=== PATIENT | female | born 1935 | race Caucasian/White ===

== ENCOUNTER 2018-01-13 10:23 | Inpatient (IN) | payer OTHER ==
[~2018-01-13] VITALS: Ht 162.6 cm; Wt 56.7 kg
[~2018-01-13 10:23] MED LIST: CORDARONE; LORTAB 7.5/5001 TA3
[2018-01-13 10:25] VITALS: BP 208/88
[2018-01-13] MEDS ORDERED: SYNTHROID50 MCG PO (10:33)
[2018-01-13 12:51] LABS: ABSOLUTE BASOPHILS 0.1 thou/uL (0.0-0.2); ABSOLUTE LYMPHOCYTES 0.8 thou/uL (0.8-5.3); ABSOLUTE MONOCYTES 0.5 thou/uL (0.0-1.2); ABSOLUTE NEUTROPHILS 4.1 thou/uL (1.6-8.1); BASOPHILS 1.2 %; EOSINOPHILS 0.2 %; HEMATOCRIT 43.7 % (37.0-47.0); HEMOGLOBIN 14.5 gm/dL (12.0-15.0); LYMPHOCYTES 15.1 %; MCH 29.1 pg (26.0-34.0); MCHC 33.2 g/dL (28.0-37.0); MCV 87.7 fL (80.0-100.0); MONOCYTES 8.3 %; MPV 7.4 fl. (7.2-11.1); NUCLEATED RBCS 0 /100WBC; PLATELET COUNT* 275 thou/uL (150-400); POLYS 75.2 %; RBC 4.98 mil/uL (4.20-5.00); RDW-CV 15.3 % (10.5-14.5); WBC 5.5 thou/uL (4.0-11.0)
[2018-01-13 13:05] LABS: ANION GAP 7 mmol/L (7-16); BUN 15 mg/dL (7-18); CALCIUM 9.6 mg/dL (8.5-10.1); CHLORIDE 103 mmol/L (98-107); CO2 29 mmol/L (21-32); CREATININE 1.1 mg/dL (0.6-1.3); GLUCOSE 101 mg/dL (70-99); POTASSIUM 4.1 mmol/L (3.5-5.1); SODIUM 139 mmol/L (136-145)
[2018-01-13 13:09] LABS: ALBUMIN 3.7 g/dL (3.4-5.0); ALKALINE PHOSPHATASE 65 U/L (46-116); SGOT 18 U/L (15-37); SGPT 18 U/L (30-65); TOTAL BILIRUBIN 0.6 mg/dL (<0.1-1.0); TOTAL PROTEIN 7.1 g/dL (6.4-8.2); TROPONIN-I LEVEL <0.06 ng/mL (<0.06)
[2018-01-13 14:00] VITALS: BP 132/69
[2018-01-13 15:30] VITALS: BP 158/80
--- NOTE | 2018-01-13 16:05 | EKG ---
[place] [address] ELECTROCARDIOGRAM REPORT Name: LUISA HEDRICK Room: [address] ADM IN M.R.#: [id number] Admission: 01/13/18 Attend Phys: Marjorie Coffman MD Discharge: Date of : 33 Report #: [id number] THIS REPORT FOR: //name// [facility] ED Test Date: 2018-01-13 Test Time: 12:48:53 Pat Name: LUISA HEDRICK Department: Room: [facility] Gender: F [employer] Warehouse Supervisor: Yaw SAUER : 1935 Requested By: Gaby Montano Order Number: [id number] MD: Andrae Sen Measurements Intervals [place] Rate: 65 P: 55 MA: 169 QRS: 7 QRSD: 94 T: 39 QT: 399 QTc: 415 Interpretive Statements Sinus rhythm Possible left atrial enlargement Compared to ECG 09/27/2011 08:44:51 No significant changes Electronically Signed On 01-13-2018 16:05:08 LOGISTICS PLANNING MANAGER by Andrae Sen [email or web address] <ELECTRONICALLY SIGNED> By: Andrae Sen MD, [facility] 01/13/18 1605 1248 1248 Andrae Sen MD, FACC /EPI
[2018-01-13 20:00] VITALS: BP 143/63
[2018-01-14 00:23] VITALS: BP 151/54
[2018-01-14 04:16] VITALS: BP 148/58
[2018-01-14 05:10] LABS: HEMATOCRIT 39.6 % (37.0-47.0); MCH 28.6 pg (26.0-34.0); MCHC 32.9 g/dL (28.0-37.0); MPV 7.4 fl. (7.2-11.1); RBC 4.55 mil/uL (4.20-5.00); RDW-CV 15.4 % (10.5-14.5); WBC 3.7 thou/uL (4.0-11.0)
[2018-01-14 06:06] LABS: POTASSIUM 4.1 mmol/L (3.5-5.1); TOTAL BILIRUBIN 0.5 mg/dL (<0.1-1.0); TOTAL PROTEIN 5.4 g/dL (6.4-8.2)
[2018-01-14 07:07] LABS: URINE BILIRUBIN NEGATIVE (Negative); URINE BLOOD NEGATIVE (Negative); URINE CLARITY CLEAR; URINE COLOR YELLOW; URINE GLUCOSE-RANDOM NEGATIVE (Negative); URINE KETONES NEGATIVE (Negative); URINE LEUKOCYTES-REFLEX NEGATIVE (Negative); URINE NITRITE-REFLEX NEGATIVE (Negative); URINE PROTEIN NEGATIVE (Negative); URINE UROBILINOGEN 0.2 E.U./dl (0.2-1.0)
[2018-01-14 08:15] VITALS: BP 208/83
[2018-01-14 10:05] VITALS: BP 150/72
[2018-01-14 12:00] VITALS: BP 132/51; BP 168/73
[2018-01-14] MEDS ORDERED: TAMIFLU30 MG PO (16:22)
[2018-01-14 16:25] VITALS: BP 150/72
== END 2018-01-14 16:48 | disposition home or self-care (01) | DRG 194 ==
LOC: M.ERS 10:23 → M.TBA-ER 13:27 → M.2W 13:27
PROVIDERS: Personal Emergency Response Attendant; ADMIT Internal Medicine
DX: J09.X2 Influenza due to identified novel influenza A virus with other respiratory manifestations (principal); E44.0 Moderate protein-calorie malnutrition; I10 Essential (primary) hypertension; M19.90 Unspecified osteoarthritis, unspecified site; S09.90XA Unspecified injury of head, initial encounter; R26.81 Unsteadiness on feet; E03.9 Hypothyroidism, unspecified; Z79.899 Other long term (current) drug therapy; Z88.2 Allergy status to sulfonamides; Z88.5 Allergy status to narcotic agent; Z90.11 Acquired absence of right breast and nipple; Z91.041 Radiographic dye allergy status

== ENCOUNTER → 2018-05-19 | Outpatient (CLI) | payer OTHER ==
[~2018-05-19] MED LIST changes: +ASPIR 8181 MG PO; +COREG6.25 MG PO; +HYDROCHLOROTH12.5 M1 PO; +LIPITOR40 MG PO; +LISINOPRIL10 MG PO; +MOTION SICKNESS25 M4 PO; +ONDANSETRON ODT4 MG PO; +SYNTHROID50 MCG PO; +TAMIFLU30 MG PO
== END ==
LOC: M.LAB 10:00 → M.CT 11:00
DX: G93.9 Disorder of brain, unspecified (principal); R90.82 White matter disease, unspecified

== ENCOUNTER 2018-08-06 17:42 | Inpatient (IN) | payer OTHER ==
[~2018-08-06] VITALS: Ht 162.6 cm; Wt 57.2 kg
[~2018-08-06 17:42] MED LIST changes: -ASPIR 8181 MG PO; -COREG6.25 MG PO; -HYDROCHLOROTH12.5 M1 PO; -LIPITOR40 MG PO; -LISINOPRIL10 MG PO; -MOTION SICKNESS25 M4 PO; -ONDANSETRON ODT4 MG PO
[2018-08-06 17:47] VITALS: BP 225/96
[2018-08-06] MEDS ORDERED: ONDANSETRON ODT4 MG PO (17:49)
[2018-08-06] MEDS ORDERED: MOTION SICKNESS25 M4 PO (17:49)
[2018-08-06 18:23] LABS: HEMATOCRIT 42.8 % (37.0-47.0); HEMOGLOBIN 14.1 gm/dL (12.0-15.0); MCH 28.8 pg (26.0-34.0); MCV 87.3 fL (80.0-100.0); MPV 7.3 fl. (7.2-11.1); RBC 4.9 mil/uL (4.20-5.00); RDW-CV 15.4 % (10.5-14.5)
[2018-08-06 18:29] LABS: ANION GAP 6 mmol/L (7-16); BUN 15 mg/dL (7-18); CALCIUM 8.8 mg/dL (8.5-10.1); CHLORIDE 101 mmol/L (98-107); CO2 28 mmol/L (21-32); CREATININE 1.2 mg/dL (0.6-1.3); GLUCOSE 103 mg/dL (70-99); POTASSIUM 3.8 mmol/L (3.5-5.1); SODIUM 135 mmol/L (136-145)
[2018-08-06 18:34] LABS: APTT 25.7 Seconds (25.0-31.3)
[2018-08-06 18:36] LABS: ALBUMIN 3.5 g/dL (3.4-5.0); ALKALINE PHOSPHATASE 61 U/L (46-116); SGOT 17 U/L (15-37); SGPT 19 U/L (30-65); TOTAL BILIRUBIN 0.3 mg/dL (<0.1-1.0); TOTAL PROTEIN 6.8 g/dL (6.4-8.2); TROPONIN-I LEVEL <0.06 ng/mL (<0.06)
[2018-08-06 19:15] LABS: URINE BILIRUBIN NEGATIVE (Negative); URINE BLOOD NEGATIVE (Negative); URINE CLARITY CLEAR; URINE COLOR YELLOW; URINE GLUCOSE-RANDOM NEGATIVE (Negative); URINE KETONES NEGATIVE (Negative); URINE LEUKOCYTES 1+ (Negative); URINE NITRITE NEGATIVE (Negative); URINE PROTEIN NEGATIVE (Negative); URINE SPECIFIC GRAVITY <= 1.005 (1.005-1.030); URINE UROBILINOGEN 0.2 E.U./dl (0.2-1.0)
[2018-08-06 19:22] LABS: BACTERIA None Seen /HPF (None Seen); CASTS None Seen /LPF (None Seen); CRYSTALS None Seen /LPF (None Seen); SQUAMOUS 0-3 Few /LPF (0-3); URINE RBC None Seen /HPF (0-2); URINE WBC 0-5 Rare /HPF (0-5)
[2018-08-06 20:43] VITALS: BP 196/71
[2018-08-06 21:00] VITALS: BP 227/95
[2018-08-06 21:55] VITALS: BP 191/81
[2018-08-06 22:30] VITALS: BP 179/80
[2018-08-07] VITALS (8 sets, daily range): BP systolic 123–191; BP diastolic 50–92
[2018-08-07 05:22] LABS: HEMATOCRIT 40.7 % (37.0-47.0); HEMOGLOBIN 13.6 gm/dL (12.0-15.0); MCH 29.4 pg (26.0-34.0); MCHC 33.4 g/dL (28.0-37.0); MPV 7.4 fl. (7.2-11.1); RBC 4.63 mil/uL (4.20-5.00); RDW-CV 15.1 % (10.5-14.5); WBC 4.6 thou/uL (4.0-11.0)
[2018-08-07 05:25] LABS: CHOLESTEROL 218 mg/dL (<200); HDL CHOLESTEROL 79 mg/dL (>40); LDL CHOLESTEROL 131 mg/dL (<100); TC:HDL 2.8 Ratio (Not establshd); TRIGLYCERIDE 44 mg/dL (<150); VLDL 9 mg/dL (<40)
[2018-08-07 05:26] LABS: SERUM ASSESSMENT Clear
[2018-08-07 05:30] LABS: CREATININE 1.2 mg/dL (0.6-1.3); MAGNESIUM 2.2 mg/dL (1.8-2.4); POTASSIUM 4.1 mmol/L (3.5-5.1)
[2018-08-07] MEDS ORDERED: HYDROCHLOROTH12.5 M1 PO (09:50)
[2018-08-07] MEDS ORDERED: LISINOPRIL10 MG PO (09:50)
[2018-08-07] MEDS ORDERED: ASPIR 8181 MG PO (09:50)
[2018-08-07] MEDS ORDERED: LIPITOR40 MG PO (09:50)
--- NOTE | 2018-08-07 10:55 | EKG ---
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 08/07/18 1055 1750 1750 Keshav Tariq MD, [facility] /EPI
--- NOTE | 2018-08-07 11:31 | 2DMMODE ---
[place] [address] 2 D/M-MODE ECHOCARDIOGRAM Name: LUISA HEDRICK Room: [address] IN [facility]#: [id number] Admission: 08/06/18 Attend Phys: Lenny Lara, Discharge: Date of : 33 Date of Service: 08/07/18 1131 Report #: [id number] THIS REPORT FOR: //name// APPROVED REPORT Study performed: 08/07/2018 10:48:31 EXAM: Comprehensive 2D, Doppler, and color-flow Echocardiogram Patient Location: In-Patient Room #: [facility] Status: routine BSA: 1.62 HR: 68 bpm BP: 144/64 mmHg Rhythm: NSR Other Information Study Quality: Excellent Indications CVA/TIA Echo Enhancing Agent Indication: Rule out Shunt Agent(s) / Amount(s) Used: Agitated Saline 10 cc 2D Dimensions IVSd: 12.81 (7-11mm) LVOT Diam: 19.92 (18-24mm) LVDd: 39.74 mm PWd: 10.28 (7-11mm) Ascending Ao: 29.09 (22-36mm) LVDs: 22.44 (25-40mm) Aortic Root: 29.07 mm Volumes Left Atrial Volume (Systole) LA ESV Index: 26.50 mL/m2 Aortic Valve AoV Peak Arsalan.: 1.49 m/s AO Peak Gr.: 8.82 mmHg LVOT Max P.42 mmHg AO Mean Gr.: 4.73 mmHg LVOT Mean P.00 mmHg LVOT Max V: 1.05 m/s AO V2 VTI: 31.02 cm LVOT Mean V: 0.64 m/s LEIDA (VTI): 2.36 cm2 LVOT V1 VTI: 23.47 [place] [address] 2 D/M-MODE ECHOCARDIOGRAM Name: JOHN HEDRICKNA Room: [address] IN ..#: [id number] Admission: 08/06/18 Attend Phys: Lenny Lara, Discharge: Date of : 33 Date of Service: 08/07/18 1131 Report #: [id number] Mitral Valve E/A Ratio: 0.58 MV Decel. Time: 335.65 ms MV E Max Arsalan.: 0.56 m/s MV PHT: 97.34 ms MVA (PHT): 2.26 cm2 TDI E/Lateral E': 7.00 E/Medial E': 8.00 Medial E' Arsalan.: 0.07 m/s Lateral E' Arsalan.: 0.08 m/s Pulmonary Valve PV Peak Arsalan.: 0.92 m/s PV Peak Gr.: 3.36 mmHg Tricuspid Valve RAP Estimate: 5.00 mmHg TR Peak Gr.: 18.51 mmHg RVSP: 23.50 mmHg PA Pressure: 23.50 mmHg Left Ventricle The left ventricle is normal size. There is normal LV segmental wall motion. There is normal left ventricular wall thickness. Left ventricular systolic function is normal. The left ventricular ejection fraction is within the normal range. LVEF is 60-65%. The left ventricular diastolic function is normal. Right Ventricle The right ventricle is normal size. The right ventricular systolic function is normal. Atria The left atrium size is normal. The right atrium size is normal. Aortic Valve Mild aortic valve sclerosis. No aortic regurgitation is present. There is no aortic valvular stenosis. Mitral Valve The mitral valve is normal in structure. There is no mitral valve regurgitation noted. No evidence of mitral valve stenosis. Tricuspid Valve The tricuspid valve is normal in structure. Trace tricuspid regurgitation. [place] [address] 2 D/M-MODE ECHOCARDIOGRAM Name: LUISA HEDRICK Room: [address] IN [facility]#: [id number] Admission: 08/06/18 Attend Phys: Lenny Lara, Discharge: Date of : 33 Date of Service: 08/07/18 1131 Report #: [id number] Pulmonic Valve The pulmonary valve is normal in structure. There is no pulmonic valvular regurgitation. Great Vessels The aortic root is normal in size. IVC is normal in size and collapses with >50% inspiration Pericardium There is no pericardial effusion. <Conclusion> Left ventricular systolic function is normal. The left ventricular ejection fraction is within the normal range. <ELECTRONICALLY SIGNED> By: Keshav Tariq MD, FACC 08/07/18 1131 1131 113 Keshav Tariq MD, FACC /INF
[2018-08-07 14:10] LABS: GLYCOHEMOGLOBIN (HGB A1C) 5.2 % (4.8-5.6)
[2018-08-08] VITALS: BP 137/56
[2018-08-08 04:00] VITALS: BP 166/73
[2018-08-08 08:00] VITALS: BP 166/76
[2018-08-08 12:00] VITALS: BP 181/72
[2018-08-08 16:00] VITALS: BP 190/75
[2018-08-08 19:30] VITALS: BP 177/66
[2018-08-09] VITALS: BP 158/66
[2018-08-09 04:00] VITALS: BP 125/65
[2018-08-09 08:00] VITALS: BP 182/72
[2018-08-09 12:00] VITALS: BP 188/54
[2018-08-09 16:00] VITALS: BP 189/82
[2018-08-09 19:50] VITALS: BP 184/80
[2018-08-10] VITALS: BP 126/52
[2018-08-10 04:00] VITALS: BP 131/69
[2018-08-10] MEDS ORDERED: COREG6.25 MG PO (09:49)
[2018-08-10 10:24] VITALS: BP 161/68
[2018-08-10 11:37] VITALS: BP 154/69
--- NOTE | 2018-08-14 09:32 | CON ---
[address] [address] CONSULTATION Name: LUISA HEDRICK Room: [address] IN M.R.#: [id number] Admission: 08/06/18 Attend Phys: Lenny Lara MD Discharge: 08/10/18 Date of : 33 Report #: [id number] THIS REPORT FOR: //name// CC: Lenny Lambert Mirelladominik DATE OF SERVICE: 08/07/2018 HISTORY OF PRESENT ILLNESS: This is an 83-year-old female patient for whom a Neurology consultation was done tonight. The history originally I got from the nurse is that they noticed numbness in the left arm around 7:45. That history is not clear by talking to the patient as I will explain later. As I understood from them, subsequently the patient tried to walk and they noticed weakness because she was not able to walk. As per protocol, code stroke was activated and since it was after hours as per protocol, emergency room physician was called. Dr. Trujillo saw the patient as a stroke protocol and evaluated the patient. He did a noncontrast CT of the head and it was unremarkable. He evaluated the patient for TPA. The patient was outside the window for 3 hours and as I understood from him, she did not qualify for 4-1/2 hour window because she was more than 80-year-old and as per protocol, she was excluded from the 4-1/2 hour window. As I understood from him, he ordered a CT stroke protocol. He also recommended they contact me and the floor contacted me around 11:30 and around that time is the one I talked to Dr. Trujillo. History is basically as summarized above. When I asked the patient about the timing, she is not sure. She actually says the numbness may have happened even before 7 o'clock. She did not realize she was weak till she tried to walk, so there may be some neglect there and the symptom may be going on much longer than previously thought and the time cannot be determined with accuracy. She is weak, but still able to move the left side. She is numb. I talked to the nurses, her blood pressure was about 120 systolic, just prior to when they took it and during the episode, the blood pressure was still relatively low and the systolic was in 140s. When the patient came in, her blood pressure was 225/96. The last time the patient took her blood pressure was on Friday and she said it was very high. She did not take any medical action and just took one aspirin. Prior to that, she has not taken her blood pressure for a long time. So it looked like this patient is most likely a longstanding hypertensive where her blood pressure is uncontrolled and high for long time and it would be desirable to assume that further management. It is a difficult situation in this patient. 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 As mentioned above, I had discussed the patient with Dr. Trujillo and the patient was [address] [address] CONSULTATION Name: LUISA HEDRICK Room: [address] IN [facility].#: [id number] Admission: 08/06/18 Attend Phys: Lenny Lara MD Discharge: 08/10/18 Date of : 33 Report #: [id number] not within 3-hour window for TPA and she was not given TPA. He had ordered further workup to see if any emboli is there. Her GFR is 43. It looks like this patient had a stroke. The stroke appeared to be most likely secondary to intracranial disease and her inability to tolerate the lower blood pressure because most likely intracranial circulation is accustomed to high blood pressure she has. We may have to lower the blood pressure slowly over a period of time. Cardio embolization because of atrial fibrillation is possible, but the symptom does not appear to be hyperacute. I discussed both aggressive and nonaggressive management with this patient. I discussed the pros and cons of that. After discussing all the options with her, I agree that she is not a TPA candidate, but we should evaluate her for stroke and because of that, I went ahead and ordered an MRI stat in this patient. We can do a CT angio with contrast with a GFR of 43, but MRI will be safer. I personally do not think she is going to be a candidate for anything. I did give her all the options including the options of TPA and the fact that she can become worse. She understood that. She also want to avoid TPA and she is not in the time frame of TPA. I am not sure if she is in time frame for anything else or anything else we will find which will change the treatment, but we will make an attempt. I did give her a bolus of fluid to bump up her blood pressure. I asked the nurses to keep her flat. They should not raise her head till the blood pressure is definitely more than 150, but even then try to keep her flat. Further management will depend upon the MRI results. It will be desirable to keep her blood pressure high for next several days. More than 35 minutes of time was spent taking care of this patient today and majority of that time was spent counseling the patient on multiple options and coordinating her care. <ELECTRONICALLY SIGNED> By: Rafa Ponce MD 08/14/18 0932 0138 [id number] winifred Waddell
--- NOTE | 2018-08-14 09:32 | CON ---
[address] [address] CONSULTATION Name: LUISA HEDRICK Room: [address] IN M.R.#: [id number] Admission: 08/06/18 Attend Phys: Lenny Lara MD Discharge: 08/10/18 Date of : 33 Report #: [id number] THIS REPORT FOR: //name// CC: Lenny Latif DATE OF SERVICE: 08/07/2018 HISTORY OF PRESENT ILLNESS: This is an 83-year-old female patient who was evaluated by me for any neurological etiology for the patient's dizziness. History is somewhat poorly defined but looks like this patient is having this dizziness since December but then, she said she is going to ENT on a regular basis. That is for her throat cancer according to her, but they have evaluated her for what she described as vertigo. She get these spells that last several days and she got a similar spell and it is lasting several days. She does not know anything, which makes it better or worse. It came spontaneously without any trauma. REVIEW OF SYSTEMS: A 14-point review of system was carried out in this patient. She said she has some throat cancer. Her blood pressure fluctuates and it goes high. Sometime, she has ataxia and dizziness. When she came in, her blood pressure was pretty high. She has a history of breast cancer and some ENT cancer. She had right knee surgery in the past. She has a history of arthritis. She denies any other 14-point review of systems positive history. She is not having any visual, cardiac, respiratory, GI, , musculoskeletal, constitutional, dermatological, hematological, psychiatric, throat, allergic symptom associated with present symptomatology. PAST MEDICAL HISTORY: Negative for any early age stroke. FAMILY HISTORY: Negative for early age stroke. SOCIAL HISTORY: She does not smoke. PHYSICAL EXAMINATION: NEUROLOGICAL: Indicate she is alert, responsive. Her speech, concentration, fund of knowledge and memory is at her baseline. Cranial nerve examination 2 through 12 is unremarkable. Strength, sensation, reflexes and tone is symmetrical. There is no meningeal sign. There is no carotid bruit. There is no cerebellar sign. GENERAL: She is moderately built individual who does not have any dysmorphic features of eyes, ears and face. VITAL SIGNS: Blood pressure is 167/69, respirations 17, pulse is 63 and temperature is 97.9. NECK: She has no thyroid mass. There is no carotid bruit. HEENT: Her vision [place] [address] CONSULTATION Name: LUISA HEDRICK Room: [address] IN [facility]#: [id number] Admission: 08/06/18 Attend Phys: Lenny Lara MD Discharge: 08/10/18 Date of : 34 Report #: [id number] LUNGS: No respiratory difficulty or rhonchi was noticed. CARDIOVASCULAR: No cardiac abnormality was noted. VITAL SIGNS: As described above. Blood pressure was pretty high when she came in. LABORATORY DATA: Indicate a white count of 4.6. Sodium is normal. RADIOLOGICAL DATA: MRI of the brain and MRA of the head and neck showed some atherosclerotic disease but nothing which can explain the patient's symptom. IMPRESSION: It is unlikely that there is any neurological etiology for the patient's symptoms. The patient's symptoms are most likely because of systemic etiologies including other including ENT. 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 She is on aspirin and statin and she needs aggressive therapy for that. RECOMMENDATIONS: As far as dizziness is concerned, I will suggest doing some systemic workup and management. I do not believe the symptoms are neurological in origin. I do not believe any further neurological workup is indicated. Now, she does have problem with atherosclerotic disease intracranially and that need to be aggressively managed. Thank you very much for this referral. I discussed this and all other options including angiogram, workup for vasculitis and she understands that and she would like to continue management as an outpatient, especially with ENT. <ELECTRONICALLY SIGNED> By: Rafa Ponce MD 08/14/18 0932 1536 [id number] Ponce MD /nt
--- NOTE | 2018-08-17 12:28 | CON ---
[address] [address] CONSULTATION Name: LUISA HEDRICK Room: [address] IN M.R.#: [id number] Admission: 08/06/18 Attend Phys: Lenny Lara MD Discharge: 08/10/18 Date of : 34 Report #: [id number] THIS REPORT FOR: //name// CC: Lenny Latif INDICATION: Stroke. HISTORY OF PRESENT ILLNESS: The patient is a very pleasant 83-year-old white female with no prior cardiac history. She was admitted to the hospital several days ago with vertigo symptoms. She also had some left-sided numbness and tingling. She still has some slight symptoms on her left side. The dizziness has improved significantly. She is now ambulatory. She denies any chest pain or shortness of breath. She denies any history of atrial fibrillation. An echocardiogram showed normal left ventricular systolic function, normal diastolic function, mild aortic valvular sclerosis without stenosis and no other significant abnormalities. Cerebrovascular imaging suggests a stroke involving the right pontomedullary junction suggesting a small right brain stem acute/subacute ischemic infarct. No other significant abnormalities were noted. She denies any palpitations. PAST MEDICAL HISTORY: 1. Hypertension. 2. Breast cancer, status post right mastectomy. 3. Arthritis. 4. Appendectomy. 5. Oral cancer. 6. Right knee surgery for a bone chip. FAMILY HISTORY: Noncontributory. SOCIAL HISTORY: The patient is a lifelong nonsmoker, drinks alcohol rarely. CURRENT MEDICATIONS: Lipitor 40 mg p.o. at bedtime, lisinopril 10 mg p.o. every day, enteric-coated aspirin 325 mg daily, hydrochlorothiazide 12.5 mg daily, Zofran p.r.n., levothyroxine 0.05 mg daily. ALLERGIES: CONTRAST DYE, SULFA, CODEINE. REVIEW OF SYSTEMS: GENERAL: She denies convulsions, seizures. She did have some focal paresthesias without weakness. In general, there is no [place] [address] CONSULTATION Name: LUISA HEDRICK Room: [address]#: [id number] Admission: 08/06/18 Attend Phys: Lenny Lara MD Discharge: 08/10/18 Date of : 34 Report #: [id number] RESPIRATORY: She denies cough, sputum production or underlying lung disease. CARDIAC: As outlined above. In addition, she denies orthopnea or paroxysmal nocturnal dyspnea. She denies any history of heart murmur or edema. ENDOCRINE: No history of diabetes. She has hypothyroidism. GASTROINTESTINAL: No vomiting, hematemesis, melena, hematochezia, jaundice, or hepatitis. GENITOURINARY: No dysuria or hematuria. HEMATOLOGIC AND LYMPHATIC: No bleeding disorder. She reports history of both oral and breast cancer, status post surgical resection. ALLERGY AND IMMUNOLOGIC: She has medical allergies as outlined above. PSYCHIATRIC: No depression or anxiety. MUSCULOSKELETAL: She has some arthritis without connective tissue disease. SKIN: No recent rashes, hives or chronic skin issues. EYES: She wears glasses. She denies any acute loss in vision. EARS, NOSE, MOUTH, AND THROAT: She denies decreased hearing or epistaxis. PHYSICAL EXAMINATION: VITAL SIGNS: Blood pressure 188/54, pulse 62 and regular. GENERAL: This is a very pleasant, elderly female, in no distress. Mood and affect appropriate. HEENT: Extraocular muscles intact. Mucous membranes are moist. NECK: Shows no jugular venous distention. There are no carotid bruits. CHEST: Reveals clear lung charles without wheezes or rales. CARDIAC: Reveals a regular rhythm with normal S1 and S2. I do not appreciate gallop or murmur. ABDOMEN: Reveals normal bowel sounds. Abdomen is soft and nontender. EXTREMITIES: Shows no edema. Peripheral pulses are palpable. SKIN: Warm and dry. LABORATORY DATA: A 12-lead EKG shows sinus rhythm with no significant ST or T-wave abnormalities. Telemetry monitoring shows sinus rhythm. Labs are reviewed. Sodium 139, potassium 4.1, chloride 104, bicarbonate 29, BUN 13, creatinine 1.2, serum glucose 90. LFTs within normal limits. Troponin is less than 0.06. Total cholesterol 218, triglycerides 44, HDL 79, LDL 131. White blood cell count 4.6, hemoglobin 13.6, platelet count 240,000. IMPRESSION AND RECOMMENDATIONS: 1. Cerebrovascular accident, etiology not clear. We will arrange 30-day event monitor to evaluate for possible cardiac dysrhythmias including atrial fibrillation. Continue daily aspirin. Event monitor will be ordered as an outpatient. 2. Hypertension. Continue to make medication adjustments to improve blood pressure. 3. Hyperlipidemia. Continue atorvastatin with goal LDL of [address] [address] CONSULTATION Name: LUISA HEDRICK Room: [address] IN M.R.#: [id number] Admission: 08/06/18 Attend Phys: Lenny Lara MD Discharge: 08/10/18 Date of : 34 Report #: [id number] At this point in time, the patient appears stable from a cardiac standpoint. Further workup will be obtained as an outpatient. We will arrange 4-week followup. <ELECTRONICALLY SIGNED> By: Andrae Sen MD, FACC 08/17/18 1228 1354 14Andrae Sen MD, FACC /nt
== END 2018-08-10 12:38 | disposition home or self-care (01) | DRG 65 ==
LOC: M.ERS 17:42 → M.TBA-ER 19:10 → M.2W 19:10
PROVIDERS: Physician Assistant; ADMIT Internal Medicine
DX: I63.9 Cerebral infarction, unspecified (principal); I67.4 Hypertensive encephalopathy; I16.1 Hypertensive emergency; H81.49 Vertigo of central origin, unspecified ear; I10 Essential (primary) hypertension; M19.90 Unspecified osteoarthritis, unspecified site; I16.0 Hypertensive urgency; R20.2 Paresthesia of skin; E78.5 Hyperlipidemia, unspecified; E03.9 Hypothyroidism, unspecified; Z79.82 Long term (current) use of aspirin; Z85.3 Personal history of malignant neoplasm of breast; Z90.11 Acquired absence of right breast and nipple; Z90.49 Acquired absence of other specified parts of digestive tract; Z85.818 Personal history of malignant neoplasm of other sites of lip, oral cavity, and pharynx; Z88.2 Allergy status to sulfonamides; Z88.6 Allergy status to analgesic agent; Z91.041 Radiographic dye allergy status; Z79.899 Other long term (current) drug therapy